=== PATIENT | male | born 1980 | race Caucasian/White ===

== ENCOUNTER 2016-10-24 01:19 | Emergency (ER) | payer OTHER ==
[~2016-10-24] VITALS: Ht 182.9 cm; Wt 121.1 kg
[~2016-10-24 01:19] MED LIST: ADDERALL10 MG PO; ADDERALL20 MG PO; ADDERALL5 MG PO; AUGMENTIN875 MG PO; CLONAZEPAM1 MG PO; FLUOXETINE HCL20 MG PO; INDOCIN25 MG PO; LIDOCAINE20 MG/1 M5 PO; LITHIUM; MOTRIN600 MG PO; MOTRIN800 MG PO; NAPROSYN500 MG PO; NO HOME MEDS; NOHOMEMEDS; NORCO 7.5/321 TABLET PO; PEN-VEE K,VEET500 MG PO; PERCOCET 5/31 TABLET PO; PERIDEX1 ML MM; PROZAC10 MG PO; PROZAC20 MG PO; TRAZODONE HCL50 MG PO; ULTRAM50 MG PO; ZOLPIDEM TARTRA10 MG PO; ZOLPIDEM TARTRAT5 MG PO; no home meds
[2016-10-24 01:56] LABS: HEMATOCRIT 43.3 % (38.0-50.0); MCH 30.3 PG (29.0-34.0); MCHC 34.2 G/DL (30.0-36.0); MCV 88.5 FL (86-99); MEAN PLAT.VOLUME 10.5 uM^3 (9.0-12.4); PLATELET COUNT 182 K/uL (156-360); RBC DIS.WIDTH-CV 12.1 % (11.8-14.6); RBC DIS.WIDTH-SD 39.4 % (39-53); RED BLOOD COUNT 4.89 M/uL (4.00-5.50); WHITE BLOOD COUNT 12.4 K/uL (4.1-10.2)
[2016-10-24 02:05] LABS: CHLORIDE 101 mEq/L (99-109); POTASSIUM 3.3 mEq/L (3.7-5.4); SODIUM 132 mEq/L (136-147)
[2016-10-24 02:07] LABS: GLUCOSE 93 mg/dL (70-99)
[2016-10-24 02:07] LABS: ADD MEDTOX COMMENT Y; AMPHETAMINE NEGATIVE (500 ng/mL); BARBITURATES NEGATIVE (200 ng/mL); BENZODIAZEPINES NEGATIVE (150 ng/mL); COCAINE NEGATIVE (150 ng/mL); INTERNAL CONTROLS VALID? YES; METHADONE NEGATIVE (200 ng/mL); METHAMPHETAMINE NEGATIVE (500 ng/mL); OPIATES (MORPHINE) NEGATIVE (100 ng/mL); OXYCODONE NEGATIVE (100 ng/mL); PHENCYCLIDINE NEGATIVE (25 ng/mL); PROPOXYPHENE NEGATIVE (300 ng/mL); THC CANNABINOIDS PRESUMPTIVE POSITIVE (50 ng/mL); TRICYCLIC ANTIDEPRESSANTS NEGATIVE (300 ng/mL)
[2016-10-24 02:08] LABS: ANION GAP 10 MEQ/L (2-14)
[2016-10-24 02:09] LABS: TOTAL BILIRUBIN 0.5 mg/dL (0.0-1.0)
[2016-10-24 02:10] LABS: SERUM ETHYL ALCOHOL < 10 mg/dL
[2016-10-24 02:11] LABS: GFR ESTIMATE (CALCULATED) > 59 mL/min/
[2016-10-24 02:12] LABS: ALKALINE PHOSPHATASE 95 IU/L (3-129)
[2016-10-24 02:13] LABS: UREA NITROGEN (BUN) 7 mg/dL (9-23)
[2016-10-24 02:14] LABS: SALICYLATE < 5.0 MG/DL (15-30)
[2016-10-24 02:15] LABS: LIPASE 23 U/L (1.0-51.0)
[2016-10-24 02:17] LABS: TROP-I INTERPRETATION NEGATIVE; TROPONIN-I < 0.01 ng/mL (0.0-0.30)
[2016-10-24 03:19] VITALS: BP 137/83
== END 2016-10-24 03:21 | disposition home or self-care (01) ==
LOC: EME 01:19
PROVIDERS: Emergency Medicine
DX: T42.6X1A Poisoning by other antiepileptic and sedative-hypnotic drugs, accidental (unintentional), initial encounter (principal); R07.9 Chest pain, unspecified; R10.30 Lower abdominal pain, unspecified; F19.10 Other psychoactive substance abuse, uncomplicated; G47.00 Insomnia, unspecified; F31.9 Bipolar disorder, unspecified; F17.200 Nicotine dependence, unspecified, uncomplicated
CPT/HCPCS: 71010; 80053; 83690; 84484; 84999; 85027; 93005; 99281; 99284; G0480; J7030

== ENCOUNTER 2016-11-19 05:00 | Emergency (ER) | payer OTHER ==
[~2016-11-19] VITALS: Ht 182.9 cm; Wt 118.0 kg
[2016-11-19 05:42] LABS: HEMATOCRIT 45.7 % (38.0-50.0); MCH 30.5 PG (29.0-34.0); MCHC 34.4 G/DL (30.0-36.0); MCV 88.9 FL (86-99); MEAN PLAT.VOLUME 9.6 uM^3 (9.0-12.4); PLATELET COUNT 226 K/uL (156-360); RBC DIS.WIDTH-CV 12.4 % (11.8-14.6); RBC DIS.WIDTH-SD 40.8 % (39-53); RED BLOOD COUNT 5.14 M/uL (4.00-5.50)
[2016-11-19 05:48] LABS: CHLORIDE 98 mEq/L (99-109)
[2016-11-19 05:49] LABS: POTASSIUM 3.2 mEq/L (3.7-5.4); SODIUM 130 mEq/L (136-147)
[2016-11-19 05:50] LABS: GLUCOSE 107 mg/dL (70-99)
[2016-11-19 05:52] LABS: ANION GAP 11 MEQ/L (2-14)
[2016-11-19 05:53] LABS: SERUM ETHYL ALCOHOL < 10 mg/dL
[2016-11-19 05:54] LABS: GFR ESTIMATE (CALCULATED) > 59 mL/min/
[2016-11-19 05:56] LABS: UREA NITROGEN (BUN) 7 mg/dL (9-23)
[2016-11-19 05:57] LABS: SALICYLATE < 5.0 MG/DL (15-30)
[2016-11-19 05:58] LABS: CREATINE KINASE 97 IU/L (1-294); TOTAL CK 97 IU/L (1-294)
[2016-11-19 06:04] LABS: CK-MB 1.1 ng/mL (0.0-4.9)
[2016-11-19 06:06] LABS: TROP-I INTERPRETATION NEGATIVE; TROPONIN-I < 0.01 ng/mL (0.0-0.30)
[2016-11-19] MEDS ORDERED: TESSALON PERLE100 MG PO (07:04)
[2016-11-19 07:11] VITALS: BP 135/95
== END 2016-11-19 07:12 | disposition home or self-care (01) ==
LOC: EME → EDBD 05:00 → EME 05:00
PROVIDERS: Emergency Medicine
DX: R00.2 Palpitations (principal); T45.0X5A Adverse effect of antiallergic and antiemetic drugs, initial encounter; D72.829 Elevated white blood cell count, unspecified; E87.1 Hypo-osmolality and hyponatremia; E87.6 Hypokalemia; Z88.8 Allergy status to other drugs, medicaments and biological substances; F32.9 Major depressive disorder, single episode, unspecified
CPT/HCPCS: 80048; 81003; 82550; 82553; 84484; 85027; 93005; 99281; 99285; G0480; J2060; J7030

== ENCOUNTER 2017-12-06 22:23 | Emergency (ER) | payer OTHER ==
[~2017-12-06] VITALS: Ht 182.9 cm; Wt 134.0 kg
[~2017-12-06 22:23] MED LIST changes: +TESSALON PERLE100 MG PO
[2017-12-06 22:36] VITALS: BP 138/100
== END 2017-12-06 23:29 | disposition left against medical advice (07) ==
LOC: EME 22:23
DX: I10 Essential (primary) hypertension (principal); Z53.21 Procedure and treatment not carried out due to patient leaving prior to being seen by health care provider